=== PATIENT | male | born 1960 | race Caucasian/White ===

== ENCOUNTER 2019-09-01 12:29 | Inpatient (IN) | payer OTHER ==
[~2019-09-01] VITALS: Ht 200.7 cm; Wt 119.3 kg
[2019-09-01 12:58] VITALS: Ht 200.7 cm; Wt 119.3 kg
[2019-09-01] MEDS ORDERED: NOVAPLUS F0.05 MG/Ac (13:12)
[2019-09-01] MEDS ORDERED: KEFLEX500 M1 PO (13:12)
[2019-09-01] MEDS ORDERED: NOR5 PO (13:13)
[2019-09-01] MEDS ORDERED: ZYRTEC ALLERGY10 MG PO (13:13)
[2019-09-01] MEDS ORDERED: ECOTRIN81 M2 PO (13:14)
[2019-09-01] MEDS ORDERED: CRESTOR40 M1 PO (13:15)
[2019-09-01] MEDS ORDERED: GLIPIZIDE5 M3 PO (13:15)
[2019-09-01] MEDS ORDERED: LANTUS SOLOS100 U/M1 SC (13:15)
[2019-09-01] MEDS ORDERED: D3-50001 TAB PO (13:17)
[2019-09-01 14:24] LABS: CALCIUM 8.7 mg/dL (8.5-10.1); CARBON DIOXIDE 23.6 mmol/L (21-32); CREATININE SERUM 1.9 mg/dL (0.7-1.3); POTASSIUM SERUM 4.4 mmol/L (3.5-5.1)
[2019-09-01 14:30] LABS: BILIRUBIN TOTAL 0.5 mg/dL (0.20-1.00); C REACTIVE PROTEIN 3.6 mg/dL (<=0.9); TOTAL PROTEIN, SERUM 7.1 g/dL (6.4-8.2); URIC ACID 7.4 mg/dL (3.5-7.2)
[2019-09-01 14:31] LABS: BASOPHIL % 0.3 % (0-2); PLATELET COUNT 306 x10^3mcL (130-400)
[2019-09-01 14:34] LABS: ALBUMIN 2.7 g/dL (3.4-5.0)
[2019-09-01 15:18] LABS: RED CELL DISTRIBUTION WIDTH 14.7 % (11.5-14.5)
[2019-09-01 16:24] LABS: ERYTHROCYTE SED RATE 60 mm/hr (0-20)
[2019-09-01 16:37] LABS: AMPHETAMINE QUAL UR NONE DETECTED (See below)
[2019-09-01] MEDS ORDERED: [UNRECOGNIZED DRUG - OTHER] (17:26)
[2019-09-01] MEDS ORDERED: ASPIRIN ADULT L81 M3 PO (17:26)
[2019-09-01 19:41] VITALS: BP 145/91
[2019-09-01 21:35] VITALS: BP 133/95
[2019-09-02 06:05] VITALS: BP 133/78
[2019-09-02 07:55] LABS: BASOPHIL % 0.6 % (0-2); PLATELET COUNT 282 x10^3mcL (130-400)
[2019-09-02 08:05] LABS: RED CELL DISTRIBUTION WIDTH 14.6 % (11.5-14.5)
[2019-09-02 08:33] LABS: CALCIUM 8.3 mg/dL (8.5-10.1); CARBON DIOXIDE 22.2 mmol/L (21-32); CREATININE SERUM 1.5 mg/dL (0.7-1.3); MAGNESIUM 1.6 mg/dL (1.8-2.4); PHOSPHOROUS 3.2 mg/dL (2.5-4.9); POTASSIUM SERUM 5.2 mmol/L (3.5-5.1)
[2019-09-02 09:33] VITALS: BP 139/82
[2019-09-02 12:24] LABS: CALCIUM 8.8 mg/dL (8.5-10.1); CARBON DIOXIDE 26.8 mmol/L (21-32); CHLORIDE SERUM 108 mmol/L (98-107); CREATININE SERUM 1.3 mg/dL (0.7-1.3); GFR1 > 60 mL/min; GLUCOSE SERUM 134 mg/dL (74-106); POTASSIUM SERUM 4.8 mmol/L (3.5-5.1); SODIUM SERUM 141 mmol/L (136-145)
[2019-09-02 14:04] VITALS: BP 147/89
[2019-09-02 20:55] VITALS: BP 100/70; BP 513/72
[2019-09-03 05:57] VITALS: BP 132/90
[2019-09-03 07:49] LABS: BASOPHIL % 0.4 % (0-2); PLATELET COUNT 278 x10^3mcL (130-400)
[2019-09-03 07:54] LABS: RED CELL DISTRIBUTION WIDTH 14.8 % (11.5-14.5)
[2019-09-03 07:55] VITALS: BP 123/84
[2019-09-03 07:57] LABS: CALCIUM 8.4 mg/dL (8.5-10.1); CARBON DIOXIDE 22.7 mmol/L (21-32); CHLORIDE SERUM 110 mmol/L (98-107); CREATININE SERUM 1.3 mg/dL (0.7-1.3); GFR1 > 60 mL/min; GLUCOSE SERUM 148 mg/dL (74-106); MAGNESIUM 1.5 mg/dL (1.8-2.4); PHOSPHOROUS 3.1 mg/dL (2.5-4.9); POTASSIUM SERUM 4.8 mmol/L (3.5-5.1); SODIUM SERUM 142 mmol/L (136-145)
[2019-09-03 10:16] VITALS: BP 122/75
[2019-09-03 11:38] VITALS: BP 134/71
[2019-09-03 16:33] VITALS: BP 119/77
[2019-09-03 20:00] VITALS: BP 134/78
[2019-09-04 05:45] VITALS: BP 100/56
[2019-09-04 07:42] LABS: BASOPHIL % 0.1 % (0-2); PLATELET COUNT 295 x10^3mcL (130-400)
[2019-09-04 07:59] LABS: CALCIUM 8.6 mg/dL (8.5-10.1); CARBON DIOXIDE 22.3 mmol/L (21-32); CREATININE SERUM 1.4 mg/dL (0.7-1.3); MAGNESIUM 1.6 mg/dL (1.8-2.4); PHOSPHOROUS 3.4 mg/dL (2.5-4.9); POTASSIUM SERUM 4.4 mmol/L (3.5-5.1)
[2019-09-04 08:03] LABS: RED CELL DISTRIBUTION WIDTH 14.9 % (11.5-14.5)
[2019-09-04 10:00] VITALS: BP 135/73
[2019-09-04 13:20] VITALS: BP 140/89
[2019-09-04] MEDS ORDERED: BACTRIM DS1 TAB PO (13:52)
[2019-09-04] MEDS ORDERED: LAC PO (13:53)
[2019-09-04 15:27] VITALS: BP 140/89
== END 2019-09-04 18:37 | disposition home or self-care (01) | DRG 305 ==
LOC: ED 12:29 → MU 15:43
PROVIDERS: Emergency Medicine; Internal Medicine; Podiatrist Foot & Ankle Surgery; ADMIT Internal Medicine; ATTEND Internal Medicine
PROC: 0Y6M0ZB Detachment at Right Foot, Partial 2nd Ray, Open Approach (ICD-10-PCS; 2019-09-03)
PROC: 0Y6M0ZC Detachment at Right Foot, Partial 3rd Ray, Open Approach (ICD-10-PCS; 2019-09-03)
PROC: 0Y6M0ZD Detachment at Right Foot, Partial 4th Ray, Open Approach (ICD-10-PCS; 2019-09-03)
PROC: 0Y6M0ZF Detachment at Right Foot, Partial 5th Ray, Open Approach (ICD-10-PCS; 2019-09-03)
PROC: 0Y6M0Z9 Detachment at Right Foot, Partial 1st Ray, Open Approach (ICD-10-PCS; principal; 2019-09-03 07:30)
DX: E11.69 Type 2 diabetes mellitus with other specified complication (principal); E11.22 Type 2 diabetes mellitus with diabetic chronic kidney disease; E11.40 Type 2 diabetes mellitus with diabetic neuropathy, unspecified; N17.9 Acute kidney failure, unspecified; N18.3 Chronic kidney disease, stage 3 (moderate); M86.8X7 Other osteomyelitis, ankle and foot; E11.621 Type 2 diabetes mellitus with foot ulcer; I50.9 Heart failure, unspecified; E78.5 Hyperlipidemia, unspecified; E11.65 Type 2 diabetes mellitus with hyperglycemia; L03.115 Cellulitis of right lower limb; L97.519 Non-pressure chronic ulcer of other part of right foot with unspecified severity; I87.2 Venous insufficiency (chronic) (peripheral); I25.10 Atherosclerotic heart disease of native coronary artery without angina pectoris; I50.32 Chronic diastolic (congestive) heart failure; E78.1 Pure hyperglyceridemia; I13.0 Hypertensive heart and chronic kidney disease with heart failure and stage 1 through stage 4 chronic kidney disease, or unspecified chronic kidney disease; Z86.73 Personal history of transient ischemic attack (TIA), and cerebral infarction without residual deficits; Z89.432 Acquired absence of left foot; Z79.899 Other long term (current) drug therapy; Z79.4 Long term (current) use of insulin; Z86.711 Personal history of pulmonary embolism
CPT/HCPCS: 82962; 97112-GP; G0378; J1642; J2543; J3010; J3370; J3490; J7030; J7050; Q0092; U0003-CS